=== PATIENT | male | born 1985 | race African-American/Black ===

== ENCOUNTER 2017-07-30 01:46 | Emergency (ER) | payer SELFPAY ==
[2017-07-30] MEDS ORDERED: Lidocaine 1% w/Epinephrine 1:200K 30 ML VIAL ONE (02:04)
== END 2017-07-30 03:04 | disposition home or self-care (01) ==
LOC: ERS 01:46
DX: L02.11 Cutaneous abscess of neck (principal)
CPT/HCPCS: 10060

== ENCOUNTER 2017-08-03 14:35 | Emergency (ER) | payer SELFPAY | END 2017-08-03 15:07 | disposition home or self-care (01) | LOC: ERS 14:35 | DX: Z48.817 Encounter for surgical aftercare following surgery on the skin and subcutaneous tissue (principal); Z48.01 Encounter for change or removal of surgical wound dressing; R03.0 Elevated blood-pressure reading, without diagnosis of hypertension | CPT/HCPCS: 99282 ==

== ENCOUNTER 2020-05-24 01:57 | Observation (INO) | payer OTHER ==
[2020-05-24] MEDS ORDERED: Ondansetron PF 4 MG/2 ML Vial ONE (02:06)
[2020-05-24 02:17] LABS: #Basophils 0.1 thou/uL (0.0-0.2); #Eosinphils 0.1 thou/uL (0.0-0.7); #Lymphocytes 2.9 thou/uL (1.20-3.40); #Monocytes 0.5 thou/uL (0.11-0.59); #Neutrophils 5.6 thou/uL (1.40-6.50); %Basophils 0.9 % (0.0-1.0); %Lymphocytes 31.6 % (21.0-51.0); %Monocytes 5.2 % (0.0-10.0); %Neutrophils 61.4 % (42.0-75.0); Hemoglobin 15.7 g/dL (14.0-18.0); Mean Corpuscular HGB CONC 33.8 g/dL (32.0-36.0); Mean Corpuscular Hemoglobin 28.1 pg (27.0-31.0); Mean Corpuscular Volume 83.1 fL (78.0-98.0); Mean Platelet Volume 7.7 fL (7.4-10.4); Platelet Count 251 thou/uL (130-400); RBC Distribution Width 11.8 % (11.5-14.5); Red Blood Cell (RBC) Count 5.57 mill/uL (4.70-6.10); White Blood Cell (WBC) Count 9.1 thou/uL (4.8-10.8)
[2020-05-24 02:38] LABS: ALT (SGPT) 30 U/L (8-55); AST (SGOT) 27 U/L (5-34); Albumin 4.7 g/dL (3.5-5.0); Alkaline Phosphatase 58 U/L (40-110); Anion Gap 18 mmol/L (10-20); BUN (Urea Nitrogen) 11 mg/dL (8.9-20.6); Bilirubin, Total 0.8 mg/dL (0.2-1.2); CK (CPK) 126 U/L (30-200); Calc. Creatinine Clearance 0 mL/min (70-130); Calcium 10.5 mg/dL (7.8-10.44); Carbon Dioxide 25 mmol/L (22-29); Chloride 99 mmol/L (98-107); Estimated GFR-MDRD 53; Globulin 3.5 g/dL (2.4-3.5); Glucose 320 mg/dL (70-105); Lipase 16 U/L (8-78); Potassium 4.7 mmol/L (3.5-5.1); Protein, Total 8.2 g/dL (6.0-8.3); Sodium 137 mmol/L (136-145)
[2020-05-24] MEDS ORDERED: Aspirin Chewable 81 MG TAB ONE ×2 (04:11)
[2020-05-24 05:17] LABS: Bilirubin Negative (Negative); Blood, Urine Negative (Negative); Clarity Clear (Clear); Glucose, Urine (Dipstick) >=1000 mg/dL (Negative); Ketone, Urine Negative (Negative); Leukocyte Negative Leu/uL (Negative); Nitrite Negative (Negative); Protein, Urine (Dipstick) Negative (Neg-Trace); Urobilinogen Normal mg/dL (Less than 2); pH, Urine 5.5 (5.0-9.0)
[2020-05-24 06:52] LABS: Troponin I Less than 0.010 ng/mL (< 0.028)
--- NOTE | 2020-05-24 07:40 | RAD ---
EXAM: Single view of the chest HISTORY: Dyspnea COMPARISON: None FINDINGS: Single view of the chest shows a normal sized cardiomediastinal silhouette. There is no choco dence of consolidation, mass, or pleural effusion. The bones are unremarkable IMPRESSION: No evidence of acute cardiopulmonary disease
--- NOTE | 2020-05-24 08:20 | PDOC.HHP ---
Hospitalist HPI - History of Present Illness Nausea and SOB History of Present Illness: PCP: None The patient is a 34-year-old male with a past medical history significant for hypertension that presents to the ER for the above complaint. The patient reports the acute onset of nausea and shortness of breath at approximately 1030 last night, while at work. 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 He thought he was dehydrated. Reports symptoms improved when he stepped outside of his workplace. He reports that he does not drink a lot of water daily and he feels this way often. He also reports some urinary frequency and polydipsia. He reports that this has been going on for the past several days. He reports that his mother has a history of diabetes type 2. He denies any recent fever or chills. He denies any chest pain or heart palpitations. He denies any recent cough or wheezing. He denies any abdominal pain, vomiting or diarrhea. He denies any pain with urination. ED Course: In the ER, patient presented hypertensive and tachycardic with a normal respiratory rate and was afebrile. Vital signs were as follows: VITAL SIGNS FriMay 24, 2020 01:58 FRAN Huffman Natalee BP: 156/97, Pulse: 114, Resp: 18, Temp: 98.6 (Oral), Pain: 3, O2 sat: 99 on ( Room Air), Time: 05/24/2020 01:58. VITAL SIGNS FriMay 24, 2020 03:16 FRAN Huffman Natalee BP: 162/110, Pulse: 105, Resp: 18, Pain: 3, O2 sat: 99 on (Room Air), Time: 2019 03:16. VITAL SIGNS FriMay 24, 2020 02:30 FRAN Huffman Natalee BP: 160/102, Pulse: 111, Resp: 16, Pain: 3, O2 sat: 95 on (Room Air), Time: 2019 02:30. VITAL SIGNS FriMay 24, 2020 04:16 FRAN Huffman Natalee BP: 151/104, Pulse: 109, Resp: 16, Temp: 98.6 (Oral), Pain: 0, O2 sat: 99 on ( Room Air), Time: 05/24/2020 04:16. EKG sinus tachycardia no ST elevations V1-V2, less than 1mm. CTA of chest was performed, negative for any acute pulmonary embolism. Initial troponins x2 were negative. Blood glucose 320. UA showed elevated specific gravity and glucose greater than 1000. Creatinine was bumped at 1.80. Patient was given 2 L normal saline, full dose aspirin, and Zofran. Allergies: Shellfish Containing Products Home Medications: Amlodipine 5 mg p.o. daily Hospitalist ROS - Review of Systems Constitutional: denies: fever, chills Respiratory: denies: cough, sputum, wheezing Cardiovascular: denies: chest pain, palpitations, paroxysmal noc. dyspnea, edema , light headedness Gastrointestinal: reports: nausea. denies: vomiting, abdominal pain, diarrhea, constipation, melena, hematochezia Genitourinary: reports: frequency. denies: dysuria, incontinence, hematuria Musculoskeletal: denies: neck pain Skin: denies: rash Neurological: denies: weakness, incoordination, change in speech All other systems reviewed; all pertinent +/- noted in HPI/Subj Hospitalist History - Past Medical History Source: patient Cardiac: reports: HTN Other Medical History: MEDICAL HISTORY HTN. MALE SURGICAL HISTORY Surgical history of orthopedic surgery, right knee surgery. PSYCHIATRIC HISTORY No previous psychiatric history, no history of suicidal ideations. SOCIAL HISTORY Lives at home, with family, Patient denies alcohol use, Patient denies drug use , Patient has no smoking history. FAMILY HISTORY Family history is non contributory to this case. - Family History Family History: reports: diabetes mellitus (mother) - Social History Smoking Status: Never smoker Alcohol: reports: None Drugs: reports: none Living Situation: With Family Occupation: works at [employer] Activity level: independent ambulation - Exam General Appearance: NAD, awake alert Eye: PERRL ENT: normocephalic atraumatic Neck: supple, no JVD Heart: no murmur, no gallops, no rubs, normal peripheral pulses Heart - other findings: tachycardic, regular rhythm Respiratory: CTAB, no wheezes, no rales, no ronchi, no tachypnea Gastrointestinal: soft, non-tender, non-distended, normal bowel sounds, no hepatomegaly, no bruit, no guarding, no rigidity Extremities: no cyanosis, no clubbing, no edema Skin: no lesions, no rashes Neurological: no weakness, no focal deficits Musculoskeletal: normal tone, normal strength Psychiatric: normal affect, A&O x 3 Hospitalist Results - Labs Result Diagrams: 05/24/20 02:10 05/24/20 02:10 Lab results: WBC 9.1 thou/uL (4.8-10.8) 05/24/20 02:10 Hgb 15.7 g/dL (14.0-18.0) 05/24/20 02:10 Hct 46.3 % (42.0-52.0) 05/24/20 02:10 MCV 83.1 fL (78.0-98.0) 05/24/20 02:10 Plt Count 251 thou/uL (130-400) 05/24/20 02:10 Neutrophils % 61.4 % (42.0-75.0) 05/24/20 02:10 Sodium 137 mmol/L (136-145) 05/24/20 02:10 Potassium 4.7 mmol/L (3.5-5.1) 05/24/20 02:10 Chloride 99 mmol/L (98-107) 05/24/20 02:10 Carbon Dioxide 25 mmol/L (22-29) 05/24/20 02:10 BUN 11 mg/dL (8.9-20.6) 05/24/20 02:10 Creatinine 1.80 mg/dL (0.7-1.3) H 05/24/20 02:10 Glucose 320 mg/dL (70-105) H 05/24/20 02:10 Calcium 10.5 mg/dL (7.8-10.44) H 05/24/20 02:10 Total Bilirubin 0.8 mg/dL (0.2-1.2) 05/24/20 02:10 AST 27 U/L (5-34) 05/24/20 02:10 ALT 30 U/L (8-55) 05/24/20 02:10 Alkaline Phosphatase 58 U/L (40-110) 05/24/20 02:10 Creatine Kinase 126 U/L (30-200) 05/24/20 02:10 Troponin I Less than 0.010 ng/mL (< 0.028) 05/24/20 06:19 Serum Total Protein 8.2 g/dL (6.0-8.3) 08/05/20 02:10 Albumin 4.7 g/dL (3.5-5.0) 05/24/20 02:10 Lipase 16 U/L (8-78) 05/24/20 02:10 Urine Ketones Negative mg/dL (Negative) 05/24/20 04:45 Urine Blood Negative (Negative) 05/24/20 04:45 Urine Nitrite Negative (Negative) 05/24/20 04:45 Ur Leukocyte Esterase Negative Francisco/uL (Negative) 05/24/20 04:45 Laboratory Tests 05/24/20 05/24/20 05/24/20 02:10 02:10 06:19 Glucose 320 H Troponin I 0.016 Less than 0.010 - EKG Interpretation EKG: sinus tachycardia - Radiology Interpretation CT scan - chest Status: image reviewed by ma Chest x-ray Status: image reviewed by ma Hospitalist H&P A/P - Problem (1) Dyspnea Code(s): R06.00 - DYSPNEA, UNSPECIFIED Status: Acute Assessment and Plan: We will admit the patient to the telemetry floor, observation status. Expected length of stay less than 2 midnights. Patient presented hypertensive and tachycardic, and has a history of high blood pressure. EKG sinus tachycardia, ST elevations V1, V2, less than 1mm. Chest x-ray negative for any acute cardiopulmonary process. CTA of chest negative for PE. Initial troponin negative. HEART score 2, low risk. Will trend troponins. Will check TSH mag, fasting lipid panel and BNP level. Will order nuc med cardiac stress test and echo. We will continue aspirin. Will make patient n.p.o. (2) Tachycardia Code(s): R00.0 - TACHYCARDIA, UNSPECIFIED Status: Acute Assessment and Plan: Patient presented tachycardic and hypertensive. EKG sinus tachycardia. Patient denies any chest pain or heart palpitations. Patient denies any history of smoking or drug use. Will give IV fluids. Will check urine drug screen. We will continue cardiac monitoring. (3) Hyperglycemia Code(s): R73.9 - HYPERGLYCEMIA, UNSPECIFIED Status: Acute Assessment and Plan: Patient presented with blood glucose of 320, UA showed glucose greater than 1000 , no ketones. Gap was normal. Patient reports that mother has history of diabetes type 2. Patient reports polydipsia and polyuria over the past several days. Will check hemoglobin A1c. Will perform Accu-Cheks before meals and at bedtime. We will continue IV fluid resuscitation. (4) DANDY (acute kidney injury) Code(s): N17.9 - ACUTE KIDNEY FAILURE, UNSPECIFIED Status: Acute Assessment and Plan: Patient presented with a creatinine of 1.80. UA no signs of infection or blood. Will order renal ultrasound. We will continue IV fluid hydration. Will recheck level in a.m. - Plan Plan: SCDs for DVT prophylaxis. No GI prophylaxis. Patient is a full code. Discussed the case with Dr. García.
[2020-05-24] MEDS ORDERED: Nitroglycerin 0.4 MG TAB (25 Tab Bottle) PO PRN (08:35)
[2020-05-24] MEDS ORDERED: Dextrose 5% in Water 1,000 ML IV PRN (08:38)
[2020-05-24] MEDS ORDERED: Dextrose 50% Abboject 50 ML SYRINGE SLOW IVP PRN (08:38)
[2020-05-24] MEDS ORDERED: HumaLOG 300 UNITS/3 ML VIAL SC PRN (08:38)
[2020-05-24] MEDS ORDERED: Ondansetron ODT 4 MG TAB PO PRN (08:39)
[2020-05-24] MEDS ORDERED: Acetaminophen 325 MG TAB PO PRN (08:39)
--- NOTE | 2020-05-24 09:03 | CT ---
PRELIMINARY REPORT/[facility]/EMERGENCY AFTER HOURS PROCEDURE: EXAM: CTA Chest with Intravenous Contrast CLINICAL HISTORY: 34-year-old male patient presents ER with complaint of nausea, shortness of breath, generalized achin g that began earlier while he was at work. Patient reports he thought he was dehydrated. The patient states that soon as he left work he started feeling better. Patient denies any fever, chills, vomitin g, diarrhea, abdominal pain, chest pain, or other symptoms at this time. TECHNIQUE: Axial CTA images of the chest with intravenous contrast. Three-dimensional MIP/volume rendered reform ations were performed. CONTRAST: With; ISOVUE 370,100mL COMPARISON: None provided. FINDINGS: PULMONARY ARTERIES There is no intraluminal filling defect suspicious for PE. AORTA No thoracic aortic aneurysm or dissection. LUNGS The lungs are clear. No pulmonary mass. No focal airspace consolidation. PLEURAL SPACES No pleural effusion. No pneumothorax. HEART AND MEDIASTINUM No cardiomegaly. No significant pericardial effusion. LYMPH NODES No lymphadenopathy. BONES No focal osseous abnormality or acute fracture. CHEST WALL AND UPPER ABDOMEN There is a fat infiltration of the liver. IMPRESSION: Unremarkable CTA of the chest. ELECTRONICALLY SIGNED BY: Lorena Dutton MD May 24, 2020 4:41:08 AM CDT This report is intended for review by the ordering physician only, in accordance of law. If you recei ve this report in error, please call [facility] at [phone]. FINAL REPORT EMERGENCY AFTER HOURS CTA CHEST WITH CONTRAST: FINDINGS/IMPRESSION: I agree with the findings and impression given in the preliminary report per [facility] physici an. 1. No evidence of significant abnormality in the chest. 2. Fatty liver. POS: EAA
[2020-05-24] MEDS: Amlodipine 5 MG TAB PO SCH ×2 (09:08→15:05)
--- NOTE | 2020-05-24 09:58 | ULT ---
ULTRASOUND RETROPERITONEUM COMPLETE: (RENAL) DATE: 05/24/2020 HISTORY: Acute kidney injury in 34-year-old male FINDINGS: The right kidney measures 11.5 x 5.5 x 5.5 cm. The left kidney measures 12 x 7.5 x 6.5 cm. Both kidneys have normal parenchymal echogenicity. There is no hydronephrosis. No moderate sized or large renal cystic or solid renal lesion is identified. The urinary bladder cannot be evaluated because patient is in prone position. IMPRESSION: 1) normal sonographic appearance of the kidneys. 2) unable to visualize urinary bladder.
[2020-05-24 10:05] LABS: Amphetamine Not Detected (NotDetected); Barbiturates Screen Not Detected (NotDetected); Benzodiazepine Screen Not Detected (NotDetected); Cocaine Metabolite Screen Not Detected (NotDetected); Medtox Control Line Valid? VALID (VALID); Medtox Reader # READER 4; Methadone Not Detected (NotDetected); Methamphetamine Not Detected (NotDetected); Opiate Screen Not Detected (NotDetected); Oxycodone Screen Not Detected (NotDetected); Phencyclidine (PCP) Not Detected (NotDetected); THC/Cannabinoid Screen Not Detected (NotDetected); Tricyclic Screen Not Detected (NotDetected)
[2020-05-24 10:17] LABS: Troponin I Less than 0.010 ng/mL (< 0.028)
[2020-05-24 10:20] LABS: Hemoglobin A1c 13.7 % (4.0-6.0)
[2020-05-24] MEDS ORDERED: Magnesium 2 GM/50 ML 2 GM in Premix Bag 1 BAG IVPB SCH (10:45)
--- NOTE | 2020-05-24 13:43 | NM ---
EXAM: NM Cardiac Stress W EF WF PROVIDED CLINICAL HISTORY: Dyspnea, chest pain, hypertension. COMPARISON: None FINDINGS: This examination was performed as an exercise stress myocardial perfusion study following the routine Juan Diego protocol. The resting heart rate is 87 bpm with maximal heart rate of 162 bpm. This represents 86% of the maximum predicted affective heart rate. No significant reversible defect is seen between the stress and resting acquisitions. Gated images de monstrate mild hypokinesis involving the septum and inferior left ventricular wall. Normal ventricular wall thickening is present. A calculated left ventricular ejection fraction of 52% was ob tained. IMPRESSION: 1. Normal myocardial perfusion study without evidence of active seen to suggest ischemia. 2. Mild hypokinesis involving the septum and inferior left ventricular wall. 3. Left ventricular ejection fraction of 52%.
[2020-05-24] MEDS ORDERED: Magnesium 2 GM/50 ML BAG (IN WATER) ONE (14:42)
[2020-05-24] MEDS ORDERED: Amlodipine 5 MG TAB ONE (14:56)
[2020-05-24] MEDS: Sodium Chloride 0.9% 1,000 ML IV SCH ×2 (15:00→19:37)
[2020-05-24] MEDS ORDERED: Iopamidol-370 76% 500 ML 1 ML ONE (15:06)
[2020-05-24] MEDS ORDERED: Aspirin Chewable 81 MG TAB PO SCH (21:00)
[2020-05-24] MEDS ORDERED: Insulin Glargine 10 UNITS in Pre-Filled Syringe 1 EACH SC SCH (21:00)
[2020-05-25] MEDS: Sodium Chloride 0.9% 1,000 ML IV SCH ×2 (00:22→06:32)
[2020-05-25] MEDS: HumaLOG 300 UNITS/3 ML VIAL SC PRN ×2 (06:30→13:24)
[2020-05-25 06:56] LABS: Anion Gap 15 mmol/L (10-20); BUN (Urea Nitrogen) 10 mg/dL (8.9-20.6); Calc. Creatinine Clearance 165 mL/min (70-130); Calcium 9.6 mg/dL (7.8-10.44); Carbon Dioxide 22 mmol/L (22-29); Cardiac Risk 6.5 (Less than 4.5); Chloride 103 mmol/L (98-107); Cholesterol 253 mg/dl (< 200 Desired); Estimated GFR-MDRD Greater than 90; Glucose 316 mg/dL (70-105); HDL Cholesterol 39 mg/dL (>60 Neg Risk); Potassium 4.4 mmol/L (3.5-5.1); Sodium 136 mmol/L (136-145); Triglycerides 886 mg/dL (Less than 150)
[2020-05-25 07:30] LABS: Hemoglobin 15.2 g/dL (14.0-18.0); Mean Corpuscular HGB CONC 34.2 g/dL (32.0-36.0); Mean Corpuscular Volume 84.6 fL (78.0-98.0); Mean Platelet Volume 7.6 fL (7.4-10.4); Platelet Count 221 thou/uL (130-400); RBC Distribution Width 11.8 % (11.5-14.5); Red Blood Cell (RBC) Count 5.24 mill/uL (4.70-6.10); White Blood Cell (WBC) Count 6.2 thou/uL (4.8-10.8)
[2020-05-25] MEDS: Amlodipine 5 MG TAB PO SCH (08:58)
[2020-05-25 10:38] LABS: Band 1 % (5-11); Eosinophils 3 % (0-10); Lymphocytes 57 % (21-51); MDiff Complete? YES; Monocytes 5 % (0-10); Neutrophil 33 % (42-75); RBC Morphology Normal; Reactive Lymphocytes 1 % (0-10)
--- NOTE | 2020-05-25 11:57 | DIS ---
DATE OF ADMISSION: 05/24/2020 DATE OF DISCHARGE: 05/25/2020 DISPOSITION: Discharged to home. PRIMARY CARE PHYSICIAN: None. FINAL DIAGNOSES: 1. Acute kidney injury, resolved. 2. Diabetes mellitus type 2, new onset. 3. Hypertension. 4. Shortness of breath. 5. Tachycardia. The patient was seen. DISCHARGE MEDICATIONS: 1. Norvasc one p.o. daily. 2. Glucophage 500 mg p.o. t.i.d. ALLERGIES: NO MEDICAL ALLERGIES. DIET: Diabetic. CODE STATUS: Full. PENDING AT TIME OF DISCHARGE: Nothing. HOSPITAL COURSE: The patient was placed in the hospital at an emergency room with shortness of breath and tachycardia. 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 Family history of diabetes. His initial studies; cardiac enzymes, troponin normal x3. Creatinine 1.8, BUN 11, lytes balanced. Followed up today, creatinine 1.02, lytes balanced. Blood sugars ranged in the 300. Hemoglobin A1c was 13.7. CBC was unremarkable. Toxicology was negative. CT of the chest, no pulmonary emboli, etc. Nuclear medicine stress test; no reversible ischemia, EF greater than 50. Renal scan; normal size kidneys. No hydronephrosis. Today, the patient's vital signs are stable. He is feeling well. Diagnosis has been discussed with him. He is ready to go home. Discussed diet with him. Put him on metformin. He told me needs to follow up in 3 to 7 days with PCP. He expresses understanding. He is being discharged. Job ID: [id number]
[2020-05-25 12:08] VITALS: TEMP 97.8
[2020-05-25 13:50] LABS: SARS-CoV-2 MS2 Positive; SARS-CoV-2 N Gene Negative; SARS-CoV-2 S Gene Negative; SARS-CoV-2 by NAA Not Detected (NotDetected); SARS-CoV-2 orf1ab Negative
[2020-05-25 13:53] VITALS: BP 158/98
[2020-05-25] MEDS ORDERED: Aspirin Chewable 81 MG TAB PO SCH (21:00)
[2020-05-26] MEDS ORDERED: Amlodipine 5 MG TAB PO SCH (09:00)
== END 2020-05-25 13:55 | disposition home or self-care (01) ==
LOC: ERS 01:57 → ERHOLD 05:08 → 2NO 17:16
PROVIDERS: ADMIT Internal Medicine; ATTEND Internal Medicine
DX: R00.0 Tachycardia, unspecified (principal); R06.00 Dyspnea, unspecified; E11.65 Type 2 diabetes mellitus with hyperglycemia; N17.9 Acute kidney failure, unspecified; I10 Essential (primary) hypertension; Z79.899 Other long term (current) drug therapy; Z91.013 Allergy to seafood
CPT/HCPCS: 36415; 36416; 71045; 71275; 76770; 78452; 80048; 80053; 80061; 80306; 81003; 82550; 83036; 83690; 83735; 83880; 84443; 84484; 85025; 87635; 93005; 93017; 96361; 96374; A9500; G0378; J1815; J2405; J3475; Q9967; U0003

== ENCOUNTER 2024-05-10 17:46 | Emergency (ER) | payer BC ==
[2024-05-10] MEDS ORDERED: Ketorolac Tromethamine 30 MG (1 mL) VIAL ONE (18:26)
[2024-05-10 19:42] LABS: #Basophils Less than 0.03 10x3/uL (0.0-0.2); %Basophils 0.3 % (0.0-1.0); %Eosinophils 0.6 % (0.0-10.0); %Lymphocytes 24.6 % (21.0-51.0); %Monocytes 11.1 % (0.0-10.0); %Neutrophils 63.1 % (42.0-75.0); Hematocrit 39.8 % (42.0-52.0); Hemoglobin 13.7 g/dL (14.0-18.0); Mean Corpuscular HGB CONC 34.4 g/dL (32.0-36.0); Mean Corpuscular Hemoglobin 28.1 pg (27.0-31.0); Mean Corpuscular Volume 81.7 fL (78.0-98.0); Mean Platelet Volume 9.8 fL (7.4-10.4); Platelet Count 200 10x3/uL (130-400); RBC Distribution Width 12.5 % (11.5-14.5); Red Blood Cell (RBC) Count 4.87 mill/uL (4.70-6.10)
[2024-05-10 20:11] LABS: ALT (SGPT) 19 U/L (8-55); AST (SGOT) 20 U/L (5-34); Albumin 3.7 g/dL (3.5-5.0); Alkaline Phosphatase 46 U/L (40-110); Anion Gap 13 mmol/L (10-20); BUN (Urea Nitrogen) 9 mg/dL (8.9-20.6); Bilirubin, Total 0.6 mg/dL (0.2-1.2); Calc. Creatinine Clearance 0 mL/min (70-130); Calcium 9.5 mg/dL (7.8-10.44); Carbon Dioxide 23 mmol/L (22-29); Chloride 105 mmol/L (98-107); Estimated GFR 88; Globulin 3.5 g/dL (2.4-3.5); Glucose 223 mg/dL (70-105); Lipase 18 U/L (8-78); Magnesium 1.5 mg/dL (1.6-2.6); Potassium 4.5 mmol/L (3.5-5.1); Protein, Total 7.2 g/dL (6.0-8.3); Sodium 136 mmol/L (136-145)
== END 2024-05-10 21:26 | disposition home or self-care (01) ==
LOC: ERS 17:46
DX: S20.212A Contusion of left front wall of thorax, initial encounter (principal); S30.1XXA Contusion of abdominal wall, initial encounter; R00.0 Tachycardia, unspecified; E11.9 Type 2 diabetes mellitus without complications; I10 Essential (primary) hypertension; W22.8XXA Striking against or struck by other objects, initial encounter; Y93.02 Activity, running; Z79.84 Long term (current) use of oral hypoglycemic drugs; Z79.899 Other long term (current) drug therapy
CPT/HCPCS: 36415; 71046; 71260; 80053; 83605; 83690; 83735; 85025; 96374; J1885